=== PATIENT | female | born 2000 ===

== ENCOUNTER → 2019-12-07 | Outpatient (REF) | payer OTHER | LOC: M LAB REF 10:07 | PROVIDERS: ATTEND Physician Assistant | DX: N39.0 Urinary tract infection, site not specified (principal) ==

== ENCOUNTER → 2020-10-06 | Outpatient (REF) | payer OTHER | LOC: M WUC 19:58 | PROVIDERS: ATTEND Nurse Practitioner Family | DX: N39.0 Urinary tract infection, site not specified (principal) ==

== ENCOUNTER → 2022-07-02 | Outpatient (REF) | payer OTHER ==
[2022-07-02 15:03] LABS: GC DNA AMPLIFICATION NEGATIVE (NEGATIVE)
== END ==
LOC: M LAB REF 12:49
PROVIDERS: ATTEND Physician Assistant
DX: R30.0 Dysuria (principal)